=== PATIENT | female | born 1990 | race African-American/Black ===

== ENCOUNTER 2016-11-30 09:58 | Inpatient (IN) | payer OTHER ==
[~2016-11-30] VITALS: Ht 165.1 cm; Wt 107.5 kg
[2016-11-30 10:24] VITALS: BP 103/51
[2016-11-30 12:45] VITALS: BP 122/57
[2016-11-30 12:46] LABS: EOSINOPHIL (%) 2.3 % (0-5); EOSINOPHIL COUNT 0.2 K/uL (0-0.3); HEMATOCRIT 38.5 % (36.0-46.0); IMMATURE GRANULOCYTE (%) 1.3 % (0.0-0.7); IMMATURE GRANULOCYTE COUNT 0.1 K/uL; INSTRUMENT ABS NEUTROPHIL CT 5.5 K/uL; LYMPHOCYTE COUNT 1.8 K/uL (1.0-2.8); MCHC 34.3 G/DL (30.0-36.0); MCV 87.5 FL (83-99); MEAN PLAT.VOLUME 9.6 uM^3 (9.5-12.4); MONOCYTE (%) 5.1 % (3-12); MONOCYTE COUNT 0.4 K/uL (0-0.8); NEUTROPHIL (%) 68.4 % (45-76); NEUTROPHIL COUNT 5.5 K/uL (1.8-6.4); PLATELET COUNT 227 K/uL (156-360); RBC DIS.WIDTH-CV 12.9 % (11.8-14.6); RBC DIS.WIDTH-SD 40.5 % (39-53)
[2016-11-30 13:29] LABS: ADD MIUA? YES; BILIRUBIN NEGATIVE; BLOOD NEGATIVE; COLOR YELLOW ((YELLOW)); GLUCOSE (STRIP) NEGATIVE; KETONES NEGATIVE; LEUKOCYTES NEGATIVE; NITRITE NEGATIVE; PROTEIN (STRIP) NEGATIVE; SPECIFIC GRAVITY 1.019 (1.000-1.030); UROBILINOGEN 0.2 MG/DL (0.2-1.0)
[2016-11-30 13:44] LABS: BACTERIA 1+ /HPF; EPITHELIAL CELLS 2+ /HPF; MUCUS 2+ /LPF; RED BLOOD CELLS 20-30 /HPF (0-5); UCUL ADDED? NO; WHITE BLOOD CELLS 0-5 /HPF (0-5)
[2016-11-30 13:49] LABS: ADD MEDTOX COMMENT Y; AMPHETAMINE NEGATIVE (500 ng/mL); BARBITURATES NEGATIVE (200 ng/mL); BENZODIAZEPINES PRESUMPTIVE POSITIVE (150 ng/mL); COCAINE NEGATIVE (150 ng/mL); INTERNAL CONTROLS VALID? YES; METHADONE NEGATIVE (200 ng/mL); METHAMPHETAMINE NEGATIVE (500 ng/mL); OPIATES (MORPHINE) NEGATIVE (100 ng/mL); OXYCODONE NEGATIVE (100 ng/mL); PHENCYCLIDINE NEGATIVE (25 ng/mL); PROPOXYPHENE NEGATIVE (300 ng/mL); THC CANNABINOIDS NEGATIVE (50 ng/mL); TRICYCLIC ANTIDEPRESSANTS NEGATIVE (300 ng/mL)
[2016-11-30 14:22] LABS: BENZODIAZEPINES QUANT VALUE 0 NG/ML; BENZODIAZEPINES, URINE SCREEN Negative (200 ng/mL)
[2016-11-30 16:30] VITALS: BP 121/72
[2016-11-30] MEDS ORDERED: XANAX1 MG PO (19:05)
[2016-11-30] MEDS ORDERED: PROZAC40 MG PO (19:05)
[2016-11-30] MEDS ORDERED: PRENATAL TABLE1 EAC3 PO (19:06)
[2016-11-30 19:23] VITALS: BP 117/63
[2016-11-30 22:05] VITALS: BP 107/59
[2016-12-01] VITALS (7 sets, daily range): BP systolic 105–132; BP diastolic 55–69
[2016-12-01 07:13] LABS: EOSINOPHIL (%) 0.3 % (0-5); EOSINOPHIL COUNT 0.1 K/uL (0-0.3); HEMATOCRIT 34.2 % (36.0-46.0); IMMATURE GRANULOCYTE (%) 0.9 % (0.0-0.7); IMMATURE GRANULOCYTE COUNT 0.1 K/uL; INSTRUMENT ABS NEUTROPHIL CT 11.9 K/uL; LYMPHOCYTE COUNT 2.2 K/uL (1.0-2.8); MCH 29.4 PG (29.0-34.0); MCHC 33.6 G/DL (30.0-36.0); MCV 87.5 FL (83-99); MEAN PLAT.VOLUME 9.7 uM^3 (9.5-12.4); MONOCYTE (%) 5.6 % (3-12); MONOCYTE COUNT 0.9 K/uL (0-0.8); NEUTROPHIL (%) 78.7 % (45-76); NEUTROPHIL COUNT 11.9 K/uL (1.8-6.4); PLATELET COUNT 217 K/uL (156-360); RBC DIS.WIDTH-CV 12.9 % (11.8-14.6); RBC DIS.WIDTH-SD 40.6 % (39-53); RED BLOOD COUNT 3.91 M/uL (3.80-5.20); WHITE BLOOD COUNT 15.1 K/uL (4.1-10.2)
[2016-12-02 03:00] VITALS: BP 112/51
[2016-12-02 07:29] VITALS: BP 100/47
[2016-12-02] MEDS ORDERED: ENDOCET 5-3251 EACH PO (09:21)
[2016-12-02] MEDS ORDERED: IBUPROFEN800 MG PO (09:21)
[2016-12-02 11:08] VITALS: BP 109/57
== END 2016-12-02 14:29 | disposition home or self-care (01) | DRG 766 ==
LOC: LDRP-OP 09:58 → 2WEST 09:59
PROVIDERS: Advanced Practice Midwife; Obstetrics & Gynecology
PROC: 10D00Z1 Extraction of Products of Conception, Low, Open Approach (ICD-10-PCS; principal; 2016-11-30)
DX: O34.219 Maternal care for unspecified type scar from previous cesarean delivery (principal); Z3A.38 38 weeks gestation of pregnancy; Z37.0 Single live birth; O99.214 Obesity complicating childbirth; E66.9 Obesity, unspecified; J45.909 Unspecified asthma, uncomplicated; O99.52 Diseases of the respiratory system complicating childbirth; O99.820 Streptococcus B carrier state complicating pregnancy; Z68.30 Body mass index [BMI] 30.0-30.9, adult
CPT/HCPCS: 81003; 84999; 85025; 86900; 86901; 87077; 87086; 87186; J0690; J1100; J2274; J2405; J7120

== ENCOUNTER 2016-12-08 20:10 | Emergency (ER) | payer OTHER ==
[~2016-12-08] VITALS: Ht 165.1 cm; Wt 102.6 kg
[~2016-12-08 20:10] MED LIST: ENDOCET 5-3251 EACH PO; IBUPROFEN800 MG PO; PRENATAL TABLE1 EAC3 PO; PROZAC40 MG PO; XANAX1 MG PO
[2016-12-08 22:33] LABS: HEMATOCRIT 33.7 % (36.0-46.0); MCH 29.2 PG (29.0-34.0); MCHC 33.5 G/DL (30.0-36.0); MCV 87.1 FL (83-99); MEAN PLAT.VOLUME 9.4 uM^3 (9.5-12.4); RBC DIS.WIDTH-CV 12.2 % (11.8-14.6); RED BLOOD COUNT 3.87 M/uL (3.80-5.20); WHITE BLOOD COUNT 5.6 K/uL (4.1-10.2)
[2016-12-08 22:40] LABS: CHLORIDE 111 mEq/L (99-109); POTASSIUM 3.4 mEq/L (3.7-5.4); SODIUM 143 mEq/L (136-147)
[2016-12-08 22:41] LABS: GLUCOSE 80 mg/dL (70-99)
[2016-12-08 22:43] LABS: ANION GAP 13 MEQ/L (2-14)
[2016-12-08 22:45] LABS: GFR ESTIMATE (CALCULATED) > 59 mL/min/
[2016-12-08 22:46] LABS: UREA NITROGEN (BUN) 12 mg/dL (9-23)
[2016-12-08 23:49] LABS: PLATELET COUNT 303 K/uL (156-360)
[2016-12-09] MEDS ORDERED: CLEOCIN300 MG PO (00:32)
[2016-12-09 00:52] VITALS: BP 125/76
== END 2016-12-09 00:53 | disposition home or self-care (01) ==
LOC: EME 20:10
PROVIDERS: Emergency Medicine
DX: O86.0 Infection of obstetric surgical wound (principal); O90.0 Disruption of cesarean delivery wound; J45.909 Unspecified asthma, uncomplicated
CPT/HCPCS: 74177; 80048; 85027; 99281; 99284

== ENCOUNTER 2017-02-08 21:09 | Emergency (ER) | payer OTHER ==
[~2017-02-08] VITALS: Ht 165.1 cm; Wt 93.5 kg
[~2017-02-08 21:09] MED LIST changes: +CLEOCIN300 MG PO
[2017-02-08 22:52] LABS: HEMATOCRIT 39.4 % (36.0-46.0); MCH 29.2 PG (29.0-34.0); MCHC 33.5 G/DL (30.0-36.0); MCV 87.2 FL (83-99); MEAN PLAT.VOLUME 9.9 uM^3 (9.5-12.4); PLATELET COUNT 273 K/uL (156-360); RBC DIS.WIDTH-CV 12.7 % (11.8-14.6); RBC DIS.WIDTH-SD 40.4 % (39-53); RED BLOOD COUNT 4.52 M/uL (3.80-5.20); WHITE BLOOD COUNT 5.2 K/uL (4.1-10.2)
[2017-02-08 23:00] LABS: CHLORIDE 106 mEq/L (99-109); POTASSIUM 3.5 mEq/L (3.7-5.4); SODIUM 140 mEq/L (136-147)
[2017-02-08 23:02] LABS: GLUCOSE 86 mg/dL (70-99)
[2017-02-08 23:03] LABS: ANION GAP 12 MEQ/L (2-14)
[2017-02-08 23:04] LABS: TOTAL BILIRUBIN 0.3 mg/dL (0.0-1.0)
[2017-02-08 23:06] LABS: ALKALINE PHOSPHATASE 88 IU/L (3-129); GFR ESTIMATE (CALCULATED) > 59 mL/min/
[2017-02-08 23:07] LABS: UREA NITROGEN (BUN) 7 mg/dL (9-23)
[2017-02-08 23:09] LABS: LIPASE 18 U/L (1.0-51.0)
[2017-02-08 23:15] LABS: QUANTITATIVE HCG < 4.0 MIU/ML
[2017-02-08 23:25] LABS: ADD MIUA? YES; BILIRUBIN NEGATIVE; BLOOD NEGATIVE; COLOR YELLOW ((YELLOW)); GLUCOSE (STRIP) NEGATIVE; KETONES NEGATIVE; LEUKOCYTES NEGATIVE; NITRITE NEGATIVE; PROTEIN (STRIP) NEGATIVE; SPECIFIC GRAVITY 1.017 (1.000-1.030); UROBILINOGEN 0.2 MG/DL (0.2-1.0)
[2017-02-08 23:27] LABS: BACTERIA RARE /HPF; EPITHELIAL CELLS RARE /HPF; MUCUS TRACE /LPF; RED BLOOD CELLS 0-5 /HPF (0-5); UCUL ADDED? NO; WHITE BLOOD CELLS 0-5 /HPF (0-5)
[2017-02-09] MEDS ORDERED: BENTYL10 MG PO (00:45)
[2017-02-09 00:58] VITALS: BP 131/87
== END 2017-02-09 01:13 | disposition home or self-care (01) ==
LOC: EME 21:09
PROVIDERS: Physician Assistant Medical
DX: R10.9 Unspecified abdominal pain (principal)
CPT/HCPCS: 74177; 80053; 81003; 83690; 84702; 85027; 99281; 99284; J1885; J7030

== ENCOUNTER 2017-04-21 15:02 | Emergency (ER) | payer OTHER ==
[~2017-04-21] VITALS: Ht 165.1 cm; Wt 88.8 kg
[~2017-04-21 15:02] MED LIST changes: +BENTYL10 MG PO
[2017-04-21 15:15] VITALS: BP 125/88
== END 2017-04-21 15:43 | disposition left against medical advice (07) ==
LOC: EME 15:02
DX: R10.9 Unspecified abdominal pain (principal); Z53.21 Procedure and treatment not carried out due to patient leaving prior to being seen by health care provider
CPT/HCPCS: 80053; 81003; 83690; 84702; 85027

== ENCOUNTER 2017-05-07 15:11 | Emergency (ER) | payer OTHER ==
[~2017-05-07] VITALS: Ht 172.7 cm; Wt 83.0 kg
[2017-05-07 18:07] LABS: ADD MEDTOX COMMENT Y; AMPHETAMINE NEGATIVE (500 ng/mL); BARBITURATES NEGATIVE (200 ng/mL); BENZODIAZEPINES PRESUMPTIVE POSITIVE (150 ng/mL); COCAINE NEGATIVE (150 ng/mL); INTERNAL CONTROLS VALID? YES; METHADONE NEGATIVE (200 ng/mL); METHAMPHETAMINE NEGATIVE (500 ng/mL); OPIATES (MORPHINE) NEGATIVE (100 ng/mL); OXYCODONE NEGATIVE (100 ng/mL); PHENCYCLIDINE NEGATIVE (25 ng/mL); PROPOXYPHENE NEGATIVE (300 ng/mL); THC CANNABINOIDS NEGATIVE (50 ng/mL); TRICYCLIC ANTIDEPRESSANTS NEGATIVE (300 ng/mL)
[2017-05-07 18:43] LABS: BENZODIAZEPINES QUANT VALUE 0 NG/ML; BENZODIAZEPINES, URINE SCREEN Negative (200 ng/mL)
[2017-05-07] MEDS ORDERED: TYLENOL EXTRA500 MG PO (19:47)
[2017-05-07] MEDS ORDERED: MOTRIN600 MG PO (19:47)
[2017-05-07 20:11] VITALS: BP 157/98
== END 2017-05-07 20:14 | disposition home or self-care (01) ==
LOC: EME 15:11
PROVIDERS: Physician Assistant
PROC: 3E0234Z Introduction of Serum, Toxoid and Vaccine into Muscle, Percutaneous Approach (ICD-10-PCS; principal; 2017-05-07)
DX: T74.11XA Adult physical abuse, confirmed, initial encounter (principal); S06.0X0A Concussion without loss of consciousness, initial encounter; S16.1XXA Strain of muscle, fascia and tendon at neck level, initial encounter; S60.511A Abrasion of right hand, initial encounter; S60.512A Abrasion of left hand, initial encounter; S30.810A Abrasion of lower back and pelvis, initial encounter; Y04.8XXA Assault by other bodily force, initial encounter; Y93.01 Activity, walking, marching and hiking; Y07.03 Male partner, perpetrator of maltreatment and neglect; Z23 Encounter for immunization; J45.909 Unspecified asthma, uncomplicated
CPT/HCPCS: 70450; 72125; 73130; 84999; 99281; 99284

== ENCOUNTER 2017-07-08 18:35 | Emergency (ER) | payer OTHER ==
[~2017-07-08] VITALS: Ht 165.1 cm; Wt 89.3 kg
[~2017-07-08 18:35] MED LIST changes: +MOTRIN600 MG PO; +TYLENOL EXTRA500 MG PO
[2017-07-08] MEDS ORDERED: ROBITUSSIN AC,T10 ML PO (19:50)
[2017-07-08] MEDS ORDERED: MOTRIN600 MG PO (19:50)
[2017-07-08 20:08] VITALS: BP 132/87
== END 2017-07-08 20:09 | disposition home or self-care (01) ==
LOC: EME 18:35
DX: J11.1 Influenza due to unidentified influenza virus with other respiratory manifestations (principal); S20.219A Contusion of unspecified front wall of thorax, initial encounter; J45.909 Unspecified asthma, uncomplicated; W18.2XXA Fall in (into) shower or empty bathtub, initial encounter; Z79.82 Long term (current) use of aspirin
CPT/HCPCS: 71046; 99281; 99284

== ENCOUNTER 2017-09-30 16:01 | Emergency (ER) | payer OTHER ==
[~2017-09-30] VITALS: Ht 165.1 cm; Wt 90.0 kg
[~2017-09-30 16:01] MED LIST changes: +ROBITUSSIN AC,T10 ML PO
[2017-09-30 17:26] LABS: HEMATOCRIT 38.3 % (36.0-46.0); MCH 28.6 PG (29.0-34.0); MCHC 33.9 G/DL (30.0-36.0); MCV 84.4 FL (83-99); PLATELET COUNT 303 K/uL (156-360); RBC DIS.WIDTH-CV 13.2 % (11.8-14.6); RBC DIS.WIDTH-SD 41.2 % (39-53); RED BLOOD COUNT 4.54 M/uL (3.80-5.20)
[2017-09-30 17:31] LABS: APPEARANCE CLEAR ((CLEAR)); BILIRUBIN NEGATIVE; BLOOD NEGATIVE; COLOR YELLOW ((YELLOW)); GLUCOSE (STRIP) NEGATIVE; KETONES NEGATIVE; LEUKOCYTES NEGATIVE; NITRITE NEGATIVE; PROTEIN (STRIP) NEGATIVE; SPECIFIC GRAVITY 1.023 (1.000-1.030); UROBILINOGEN 0.2 MG/DL (0.2-1.0)
[2017-09-30 17:36] LABS: ALBUMIN 4.4 g/dL (3.2-4.8); CHLORIDE 107 mEq/L (99-109); POTASSIUM 3.2 mEq/L (3.7-5.4); SODIUM 139 mEq/L (136-147)
[2017-09-30 17:38] LABS: GLUCOSE 90 mg/dL (70-99)
[2017-09-30 17:39] LABS: TOTAL PROTEIN 7.3 g/dL (6.4-8.3)
[2017-09-30 17:40] LABS: TOTAL BILIRUBIN 0.4 mg/dL (0.0-1.0)
[2017-09-30 17:42] LABS: ALKALINE PHOSPHATASE 69 IU/L (3-129); CREATININE 0.7 mg/dL (0.6-1.3); GFR ESTIMATE (CALCULATED) > 59 mL/min/
[2017-09-30 17:43] LABS: UREA NITROGEN (BUN) 7 mg/dL (9-23)
[2017-09-30 17:44] LABS: AST (GOT) 17 IU/L (2-34)
[2017-09-30 17:45] LABS: ALT (GPT) 14 IU/L (3-49)
[2017-09-30 17:51] LABS: QUANTITATIVE HCG 4129.5 MIU/ML
[2017-09-30 20:20] VITALS: BP 137/79
== END 2017-09-30 20:30 | disposition home or self-care (01) ==
LOC: EME 16:01
PROVIDERS: Physician Assistant
DX: O9A.211 Injury, poisoning and certain other consequences of external causes complicating pregnancy, first trimester (principal); S30.1XXA Contusion of abdominal wall, initial encounter; S50.12XA Contusion of left forearm, initial encounter; W10.9XXA Fall (on) (from) unspecified stairs and steps, initial encounter; Y92.009 Unspecified place in unspecified non-institutional (private) residence as the place of occurrence of the external cause; O99.511 Diseases of the respiratory system complicating pregnancy, first trimester; J45.909 Unspecified asthma, uncomplicated; Z3A.01 Less than 8 weeks gestation of pregnancy
CPT/HCPCS: 73090; 76801; 80053; 81003; 84702; 85027; 99281; 99284; J1885; J7040

== ENCOUNTER 2017-10-18 16:54 | Emergency (ER) | payer OTHER ==
[~2017-10-18] VITALS: Ht 165.1 cm; Wt 91.9 kg
[2017-10-18 17:54] LABS: HEMOGLOBIN 12.4 G/DL (11.9-15.5); MCH 28.8 PG (29.0-34.0); MCHC 34.4 G/DL (30.0-36.0); MCV 83.7 FL (83-99); PLATELET COUNT 278 K/uL (156-360); RBC DIS.WIDTH-CV 13.6 % (11.8-14.6); RBC DIS.WIDTH-SD 41.6 % (39-53); WHITE BLOOD COUNT 7.2 K/uL (4.1-10.2)
[2017-10-18 18:37] LABS: ALBUMIN 3.8 g/dL (3.2-4.8); CHLORIDE 107 mEq/L (99-109); POTASSIUM 3.5 mEq/L (3.7-5.4); SODIUM 137 mEq/L (136-147)
[2017-10-18 18:39] LABS: GLUCOSE 76 mg/dL (70-99); TOTAL PROTEIN 6.8 g/dL (6.4-8.3)
[2017-10-18 18:41] LABS: TOTAL BILIRUBIN 0.2 mg/dL (0.0-1.0)
[2017-10-18 18:43] LABS: ALKALINE PHOSPHATASE 57 IU/L (3-129); CREATININE 0.7 mg/dL (0.6-1.3); GFR ESTIMATE (CALCULATED) > 59 mL/min/
[2017-10-18 18:44] LABS: UREA NITROGEN (BUN) 10 mg/dL (9-23)
[2017-10-18 18:45] LABS: AST (GOT) 10 IU/L (2-34)
[2017-10-18 18:46] LABS: ALT (GPT) 8 IU/L (3-49)
[2017-10-18 19:40] LABS: APPEARANCE CLEAR ((CLEAR)); BILIRUBIN NEGATIVE; BLOOD NEGATIVE; COLOR YELLOW ((YELLOW)); GLUCOSE (STRIP) NEGATIVE; KETONES 5; LEUKOCYTES NEGATIVE; NITRITE NEGATIVE; PROTEIN (STRIP) 30; SPECIFIC GRAVITY 1.038 (1.000-1.030); UCUL ADDED? NO; UROBILINOGEN 0.2 MG/DL (0.2-1.0)
[2017-10-18 20:27] VITALS: BP 111/59
== END 2017-10-18 20:28 | disposition home or self-care (01) ==
LOC: EME 16:54
DX: O20.0 Threatened abortion (principal); Z3A.01 Less than 8 weeks gestation of pregnancy
CPT/HCPCS: 76801; 80053; 81003; 84702; 85027; 99281; 99283